=== PATIENT | female | born 1995 | race Caucasian/White ===

== ENCOUNTER 2021-06-20 01:33 | Emergency (ER) | payer BC ==
--- OUTSIDE RECORDS SUMMARY | 2021-06-20 01:38 | XMS REPORT | Continuity of Care Document ---
:1995 Author Organization [facility] t Address [address] [place] [address] Care Team Providers Name Role Phone Tamra Attending Clinician Unavailable Violet Blancas NP Attending Clinician Violet BLANCAS Attending Clinician Unavailable PROVIDERADRIANA Attending Clinician Unavailable Radha Cox Attending Clinician Unavailable Payers Payer Name Policy Type Policy Number Effective Date Expiration Date S ource Problems Condition Condition Condition Status Onset Resolution Last Treating Co mments Source Name Details Category Date Date Treatment Clinician Date Problem No known ASSERTION [facility] (Sarabjit) Allergies, Adverse Reactions, Alerts Allergy Allergy Status Severity Reaction(s) Onset Inactive Treating Comm ents Source Name Type Date Date Clinician NO KNOWN Drug Active [facility] ALLERG Class ity of [facility] Social History Social Habit Start Date Stop Date Quantity Comments Source Exposure to Not sure [facility] SARS-[facility]-2 [facility]igned At [address] [facility]00 00:00:00 [facility] (Sarabjit) Smoking Status Start Date Stop Date Source Unknown if ever smoked [facility] [place] ([facility]abjit[facility] Medications Ordered Filled Start Stop Current Ordering Indication Dosage Frequency Signature Comments Components Source Medication Medication Date Date Medication? Clinician (SIG) Name Name Hydrocodone 2020-05 No 1TAB Every [address] [address] [facility]/Apap 2-19 Hours [facility] 5/325 19:54[facility] ([place] 18 [facility] 5/325) 5 (Sarabjit) MG/325 MG Tab Vital Signs Vital Name Observation Time Observation Value Comments Source Systolic blood 2020-08-15 00:09:00 125 mm[Hg] Univer sity of pressure [facility] Diastolic blood 2020-08-15 00:09:00 87 mm[Hg] Unive rsity [facility] Heart rate 2020-08-15 00:09:00 77 /min [facility] Body temperature 2020-08-15 00:09:00 36.72 [facility] Respiratory rate 2020-08-15 00:09:00 18 /min [facility] Body height 2020-08-15 00:09:00 154.9 cm [facility] Body weight 2020-08-15 00:09:00 72.576 kg [facility] BMI 2020-08-15 00:09:00 30.23 kg/m2 [facility] Oxygen saturation in 2020-08-15 00:09:00 99 /min [facility] blood by [facility] Pulse oximetry Branch Height 2021-04-01 12:21:[address] [facility] (Madhav an) Weight Measured 2021-04-01 12:21:19 [facility]hav an[facility] Body Temperature 2021-04-01 12:21:[address] [facility] (Madhav an) Heart Rate 2021-04-01 12:21:[address] [facility] (Madhav an) Respiratory Rate 2021-04-01 12:21:[address] [facility] (Madhav an) O2 % BldC Oximetry 2021-04-01 12:21:[address] [facility] (Madhav an) BP Systolic 2021-04-01 12:21:[address] [facility] (Madhav an) BP Diastolic 2021-04-01 12:21:[address] [facility] (Madhav an) BMI (Body Mass 2021-04-01 12:21:19 AMBERLY Ribera - Index) [facility] (Madhav michaels) Procedures Procedure Date / Time Performed Performing Clinician [facility] e CT Stone Protocol 2021-05-17 17:08:[address] Tez [address]on [facility] (Sarabjit) ASSIGNMENT OF BENEFITS 2020-08-15 00:55:59 Doctor Unassigned, No [facility] NOTICE OF PRIVACY 2020-08-15 00:03:18 Doctor Unassigned, No [facility] CONSENT/REFUSAL FOR 2020-08-15 00:02:36 Doctor Unassigned, No [facility] DIAGNOSIS AND [facility] TREATMENT CT Stone Protocol 2019-07-13 00:00:00 AMBERLY Jordy Reagan rubio - [facility] (Sarabjit) Encounters Start End Encounter Admission Attending Care Care Encounter Source Date/Time Date/Time Type Type Clinicians Facility Department ID 2021-05-17 2021-05-17 Departed [id number] [place] [id number] [facility] St. 16:47:00 21:22:00 Emergency [id number] Regional [id number] [facility] - -[id number] [facility] [id number] St. [id number] Ctr-EMERGEN [id number] [facility] (Madhav michaels) 2021-05-17 2021-05-17 [id number] 16:47:00 21:22:00 Juan Pablo -[id number] Ronni barber [facility] (Sarabjit) 2020-08-14 2020-08-14 Emergency [facility] [id number] Univers 19:10:00 19:58:00 Cody Faye [id number] jeremiah [facility] [id number] [facility] [id number] [facility] 084 Branch 2020-08-14 2020-08-14 Emergency X [facility] ERT [id number] Univers 19:10:00 19:10:00 CODY daniels [facility] 2019-07-12 2019-07-13 Departed ER PROVIDER, [id number] [facility] [id number] [id number] [facility] St. 23:01:00 03:10:00 Emergency ED [id number] [facility] [address] [facility] - [id number]. [facility] St. 1.2 [facility] (Sarabjit) 2019-07-12 2019-07-13 Emergency ER Brooke [id number] [facility] St. 23:01:00 03:10:00 Sushila -[id number] [facility] (Sarabjit) Results Test Description Test Time Test Comments Results Result Comments Source Culture, Urine 2021-05-19 14:16:00 Test Item Value Reference Range Interpretation Comme nts Culture, Urine (test code = URC) NG48 [id number] 18:03:00 Test Item Value Reference Range Interpretation Comments Urinalysis (test Negative Negative Method of s ensitivity- code = BHCGUT) INDETERMINANT : results should be repea jonah after 48-72 hrs POS ITIVE: results may be detected as early as 1 day after the first missed period A dilute urine specimen may no t contain representativel evels of hCG.If pregnanc y is still suspected, a fi rst morning urinespecimen O R a random blood specimen should be obtainedfrom th e patient 48-72 hours lat er and re-tested. Urinalysis (test 1.020 1.002-1.036 N code = PREGUSG) [id number] 18:00:00 Test Item Value Reference Range Interpretation Comments Urinalysis (test code = UACLR) Yellow Yellow Urinalysis (test code = UACLY) Hazy Clear Urinalysis (test code = SPGR) 1.020 1.005-1.030 N Urinalysis (test code = SIDDHARTHA) 7.5 5.0-9.0 N Urinalysis (test code = UALEU) Negative Negative Urinalysis (test code = UANIT) Negative Negative Urinalysis (test code = Negative mg/dL Neg-Trace PROUADIP) Urinalysis (test code = GLUCU) Negative mg/dL Negative Urinalysis (test code = KETU) Negative mg/dL Negative Urinalysis (test code = 0.2 mg/dL Less than 2 UAUROB) Urinalysis (test code = UABIL) Negative Negative Urinalysis (test code = UABLD) Moderate Negative A Urinalysis (test code = UAWBC) 0-3 HPF 0-3 Urinalysis (test code = 7-10 HPF 0-3 A UASQUAM) Urinalysis (test code = UABAC) 4+ HPF None Seen A Urinalysis (test code = 0-3 LPF 0-3 UAHYAL) Urine Source: Urine Clean [id number] 17:50:00 Test Item Value Reference Range Interpretation Comments Chemistry (test code 137 mmol/L 136-145 N = NA-T) Chemistry (test code 3.9 mmol/L 3.5-5.1 N = K-T) Chemistry (test code 104 mmol/L 98-107 N = CL) Chemistry (test code 23 mmol/L 22-29 N = CO2) Chemistry (test code 14 mmol/L 10-20 N = ANGP) Chemistry (test code 10 mg/dL 7.0-18.7 N = BUN) Chemistry (test code 0.80 mg/dL 0.6-1.1 N = CREATT) Chemistry (test code 87 Referen ce Range for = EGFRMDRD) Estimated GFR: Great er than 90 mL/min/1.73 m2NOTE:The MDRD equation has no t been validated for u se with theelderly (ove r 70 years of age), women, patientswith se rious comorbid condit ion or persons with ex tremes ofbody size, mu scle mass, or nutrit ional status. Chemistry (test code 96 mg/dL 70-105 N = GLU-T) Chemistry (test code 9.9 mg/dL 7.8-10.44 N = CA) Chemistry (test code 0.9 mg/dL 0.2-1.2 N = TBILI-T) Chemistry (test code 7.7 g/dL 6.0-8.3 N = TP) Chemistry (test code 4.5 g/dL 3.5-5.0 N = ALB) Chemistry (test code 3.2 g/dL 2.4-3.5 N = GLOB) Chemistry (test code 1.4 g/dL 1.2-2.2 N = AG) Chemistry (test code 60 U/L 40-110 N = ALP) Chemistry (test code 23 U/L 5-34 N = AST) Chemistry (test code 32 U/L 8-55 N = ALT) Chemistry - [id number] 17:44:00 Test Item Value Reference Range Interpretation Comments Chemistry - Specials Negative NEGATIVE Method of sensitivity- (test code = BHCGST) Indete rminant: results should be repeated after 48-72 hrs Positive: results may be detected as ear ly as 1 day after the first missed menses. [id number] 17:36:00 Test Item Value Reference Range Interpretation Comments Hematology (test code = WBCT) 8.9 thou/uL 4.8-10.8 N Hematology (test code = RBCT) 4.63 mill/uL 4.20-5.40 N Hematology (test code = HGBT) 14.0 g/dL 12.0-16.0 N Hematology (test code = HCTT) 40.0 % 36.0-47.0 N Hematology (test code = MCV) 86.5 fL 78.0-98.0 N Hematology (test code = MCH) 30.3 pg 27.0-31.0 N Hematology (test code = MCHC) 35.0 g/dL 32.0-36.0 N Hematology (test code = RDW) 11.3 % 11.5-14.5 L Hematology (test code = PLTT) 328 thou/uL 130-400 N Hematology (test code = MPV) 7.6 fL 7.4-10.4 N Hematology (test code = %NEUT) 59.3 % 42.0-75.0 N Hematology (test code = %LYMPH) 30.9 % 21.0-51.0 N Hematology (test code = %MONO) 7.5 % 0.0-10.0 N Hematology (test code = %EOS) 1.7 % 0.0-10.0 N Hematology (test code = %BASO) 0.6 % 0.0-1.0 N Hematology (test code = NEUT#) 5.3 thou/uL 1.40-6.50 N Hematology (test code = LYMPH#) 2.8 thou/uL 1.20-3.40 N Hematology (test code = MONO#) 0.7 thou/uL 0.11-0.59 H Hematology (test code = EOS#) 0.2 thou/uL 0.0-0.7 N Hematology (test code = BASO#) 0.1 thou/uL 0.0-0.2 N Urine urobilinogen measurement (units/volume) by test [id number] 17:29:00 Test Item Value Reference Range Interpretation Comments Urine Urobilinogen (test code = 0.2 mg/dL Less than 2 01909-4) [facility])Urine total bilirubin detection by automated test [id number] 17:29:00 Test Item Value Reference Range Interpretation Comments Urine Bilirubin (test code = Negative Negative 74657-8) [facility])Urine hemoglobin detection by automated test [id number] 17:29:00 Test Item Value Reference Range Interpretation Comments Urine Blood (test code = 14328-5) Moderate Negative [facility])Urine leukocytes detection by automated method 2021-05-17 17:29:00 Test Item Value Reference Range Interpretation Comments Urine WBC (test code = 66029-5) 0-3 HPF [facility])Epithelial cells.squamous [#/area] in Urine sediment by Automated [id number] 17:29:00 Test Item Value Reference Range Interpretation Comments Urine Squamous Epithelial Cells 7-10 HPF (test code = 39747-4) [facility]Urine bacteria detection by automated method 2021-05-17 17:29:00 Test Item Value Reference Range Interpretation Comments Urine Bacteria (test code = 37957-6) 4+ HPF None Seen [facility])HCG ur [id number] 17:29:00 Test Item Value Reference Range Interpretation Comments Urine Test (test code = Negative Negative 6-3) [facility])Specific gravity of Urine by Refractometry [id number] 17:29:00 Test Item Value Reference Range Interpretation Comments Urine Specific [place] (test code = 1.020 1.002-1.036 46251-1) [facility])Urine [id number] 17:29:00 Test Item Value Reference Range Interpretation Comments Urine Color (test code = 5778-6) Yellow Yellow [facility])Urine [id number] 17:29:00 Test Item Value Reference Range Interpretation Comments Urine Clarity (test code = 72864-0) Hazy Clear [facility])Urine pH measurement by automated test strip 2021-05-17 17:29:00 Test Item Value Reference Range Interpretation Comments Urine pH (test code = 66545-4) 7.5 5.0-9.0 [facility])Urine leukocyte esterase detection by automated test [id number] 17:29:00 Test Item Value Reference Range Interpretation Comments Urine Leukocyte Esterase (test code Negative Negative = 95541-6) [facility])Nitrite [Presence] in Urine by Test strip 2021-05-17 17:29:00 Test Item Value Reference Range Interpretation Comments Urine Nitrite (test code = 5802-4) Negative Negative [facility])Urine protein measurement by automated test strip (mass/volume)2021-05-17 17:29:00 Test Item Value Reference Range Interpretation Comments Urine Protein (test code = Negative mg/dL Neg-Trace 66318-8) [facility])Glucose [Moles/volume] in Urine by Test strip 2021-05-17 17:29:00 Test Item Value Reference Range Interpretation Comments Urine Glucose (UA) (test code Negative mg/dL Negative = 29211-5) [facility]Urine ketones measurement by automated test strip (mass/volume)2021-05-17 17:29:00 Test Item Value Reference Range Interpretation Comments Urine Ketones (test code = Negative mg/dL Negative 11420-1) [facility])Serum human chorionic gonadotropin detection for [id number] 17:12:00 Test Item Value Reference Range Interpretation Comments Serum Test, Qualitative Negative NEGATIVE (test code = 2118-8) [facility])Leukocytes [#/volume] in Blood by Automated [id number] 17:12:00 Test Item Value Reference Range Interpretation Comments White Blood Count (test code = 8.9 thou/uL 4.8-10.8 6690-2) [facility])Blood erythrocytes automated count (number/volume)2021-05-17 17:12:00 Test Item Value Reference Range Interpretation Comments Red Blood Count (test code = 4.63 mill/uL 4.20-5.40 789-8) [facility])Blood hemoglobin measurement (mass/volume) 2021-05-17 17:12:00 Test Item Value Reference Range Interpretation Comments Hemoglobin (test code = 718-7) 14.0 g/dL 12.0-16.0 [facility])Automated erythrocyte mean corpuscular volume 2021-05-17 17:12:00 Test Item Value Reference Range Interpretation Comments Mean Corpuscular Volume (test code = 86.5 fL 78.0-98.0 787-2) [facility])Automated erythrocyte mean corpuscular hemoglobin (mass per erythrocyte)2021-05-17 17:12:00 Test Item Value Reference Range Interpretation Comments Mean Corpuscular Hemoglobin (test 30.3 pg 27.0-31.0 code = 785-6) [facility])Automated erythrocyte mean corpuscular hemoglobin concentration measurement (mass/[id number] 17:12:00 Test Item Value Reference Range Interpretation Comments Mean Corpuscular Hemoglobin Concent 35.0 g/dL 32.0-36.0 (test code = 786-4) [facility])Automated erythrocyte distribution width ratio 2021-05-17 17:12:00 Test Item Value Reference Range Interpretation Comments Red Cell Distribution Width (test code 11.3 % 11.5-14.5 = 788-0) [facility])Automated blood platelet count (count/volume) 2021-05-17 17:12:00 Test Item Value Reference Range Interpretation Comments Platelet Count (test code = 328 thou/uL 130-400 777-3) [facility])Automated blood platelet mean [id number] 17:12:00 Test Item Value Reference Range Interpretation Comments Mean Platelet Volume (test code = 7.6 fL 7.4-10.4 83558-8) [facility])Automated blood neutrophils/100 leukocytes 2021-05-17 17:12:00 Test Item Value Reference Range Interpretation Comments Neutrophils % (test code = 770-8) 59.3 % 42.0-75.0 [facility])Lymphocytes/100 leukocytes in Blood by Automated [id number] 17:12:00 Test Item Value Reference Range Interpretation Comments Lymphocytes % (test code = 736-9) 30.9 % 21.0-51.0 [facility])Automated blood monocytes/100 leukocytes 2021-05-17 17:12:00 Test Item Value Reference Range Interpretation Comments Monocytes % (test code = 5905-5) 7.5 % 0.0-10.0 [facility])Automated blood eosinophils/100 leukocytes 2021-05-17 17:12:00 Test Item Value Reference Range Interpretation Comments Eosinophils % (test code = 713-8) 1.7 % 0.0-10.0 [facility])Automated blood basophils/100 leukocytes 2021-05-17 17:12:00 Test Item Value Reference Range Interpretation Comments Basophils % (test code = 706-2) 0.6 % 0.0-1.0 [facility])Blood neutrophils automated count (number/volume)2021-05-17 17:12:00 Test Item Value Reference Range Interpretation Comments Neutrophils # (test code = 751-8) 5.3 thou/uL 1.40-6.50 [facility])Lymphocytes [#/volume] in Blood by Automated [id number] 17:12:00 Test Item Value Reference Range Interpretation Comments Lymphocytes # (test code = 731-0) 2.8 thou/uL 1.20-3.40 [facility])Blood monocytes automated count (number/volume)2021-05-17 17:12:00 Test Item Value Reference Range Interpretation Comments Monocytes # (test code = 742-7) 0.7 thou/uL 0.11-0.59 [facility])Blood eosinophils automated count (count/volume)2021-05-17 17:12:00 Test Item Value Reference Range Interpretation Comments Eosinophils # (test code = 711-2) 0.2 thou/uL 0.0-0.7 [facility])Automated blood basophil count (count/volume) 2021-05-17 17:12:00 Test Item Value Reference Range Interpretation Comments Basophils # (test code = 704-7) 0.1 thou/uL 0.0-0.2 [facility]Serum or plasma sodium measurement (moles/volume)2021-05-17 17:08:00 Test Item Value Reference Range Interpretation Comments Sodium Level (test code = 2951-2) 137 mmol/L 136-145 [facility])Serum or plasma potassium measurement (moles/volume)2021-05-17 17:08:00 Test Item Value Reference Range Interpretation Comments Potassium Level (test code = 3.9 mmol/L 3.5-5.1 2823-3) [facility]Serum or plasma chloride measurement (moles/volume)2021-05-17 17:08:00 Test Item Value Reference Range Interpretation Comments Chloride Level (test code = 104 mmol/L 98-107 5-0) [facility])Serum or plasma carbon dioxide, total measurement (moles/volume)2021-05-17 17:08:00 Test Item Value Reference Range Interpretation Comments Carbon Dioxide Level (test code = 23 mmol/L -2028-01) [facility])Serum or plasma anion [id number] 17:08:00 Test Item Value Reference Range Interpretation Comments Anion Gap (test code = 93735-2) 14 mmol/L 10-20 [facility])Serum or plasma urea nitrogen measurement (mass/volume)2021-05-17 17:08:00 Test Item Value Reference Range Interpretation Comments Blood Urea Nitrogen (test code = 10 mg/dL 7.0-18.7 3094-0) [facility])Serum or plasma creatinine measurement (mass/volume)2021-05-17 17:08:00 Test Item Value Reference Range Interpretation Comments Creatinine (test code = 2160-0) 0.80 mg/dL 0.6-1.1 [facility])Glucose [Mass/volume] in Serum or Plasma 2021-05-17 17:08:00 Test Item Value Reference Range Interpretation Comments Glucose Level (test code = 2345-7) 96 mg/dL 70-105 [facility])Serum or plasma calcium measurement (mass/volume)2021-05-17 17:08:00 Test Item Value Reference Range Interpretation Comments Calcium Level (test code = 58531-2) 9.9 mg/dL 7.8-10.44 [facility])Serum or plasma total bilirubin measurement (mass/volume)2021-05-17 17:08:00 Test Item Value Reference Range Interpretation Comments Total Bilirubin (test code = 0.9 mg/dL 0.2-1.2 1974-2) [facility]Serum or plasma protein measurement (mass/volume)2021-05-17 17:08:00 Test Item Value Reference Range Interpretation Comments Serum Total Protein (test code = 7.7 g/dL 6.0-8.3 2885-2) [facility])Serum or plasma albumin measurement by bromocresol green (BCG) dye binding method ([id number] 17:08:00 Test Item Value Reference Range Interpretation Comments Albumin (test code = 70076-7) 4.5 g/dL 3.5-5.0 [facility])Globulin [Mass/volume] in Serum by calculation 2021-05-17 17:08:00 Test Item Value Reference Range Interpretation Comments Globulin (test code = 92887-0) 3.2 g/dL 2.4-3.5 [facility])Albumin/Globulin [Mass Ratio] in Serum or [id number] 17:08:00 Test Item Value Reference Range Interpretation Comments Albumin/Globulin Ratio (test code = 1.4 g/dL 1.2-2.2 1759-0) [facility])Alkaline phosphatase [Enzymatic activity/volume] in Serum or [id number] 17:08:00 Test Item Value Reference Range Interpretation Comments Alkaline Phosphatase (test code = 60 U/L 40-110 6768-6) [facility])Serum or plasma aspartate aminotransferase measurement (enzymatic activity/volume)2021-05-17 17:08:00 Test Item Value Reference Range Interpretation Comments Aspartate Amino Transf (AST/SGOT) 23 U/L 5-34 (test code = 1920-8) [facility])Serum or plasma alanine aminotransferase measurement without P-5'-P (enzymatic [id number] 17:08:00 Test Item Value Reference Range Interpretation Comments Alanine Aminotransferase (ALT/SGPT) 32 U/L 8-55 (test code = 1744-2) [facility])[id number] 01:22:00 Test Item Value Reference Range Interpretation Comments Urinalysis (test Yellow Yellow code = UACLR) Urinalysis (test Cloudy Clear code = UACLY) Urinalysis (test 1.025 1.005-1.030 N code = SPGR) Urinalysis (test 6.5 5.0-9.0 N code = SIDDHARTHA) Urinalysis (test Negative Negative code = UALEU) Urinalysis (test Negative Negative code = UANIT) Urinalysis (test 30 mg/dL Neg-Trace A code = PROUADIP) Urinalysis (test Negative mg/dL Negative code = GLUCU) Urinalysis (test Trace mg/dL Negative A code = KETU) Urinalysis (test 0.2 mg/dL Less than 2 code = UAUROB) Urinalysis (test Small Negative A code = UABIL) CAUTION *Urine Bilirubin has a high incidence of fa lse positiveresults due to urine color interference.In terpret results in conj unction with other clinicalfinding s. Urinalysis (test Large Negative A code = UABLD) Urinalysis (test 4-6 HPF 0-3 A code = UARBC) Urinalysis (test 11-20 HPF 0-3 A code = UAWBC) Urinalysis (test 0-3 HPF 0-3 code = UASQUAM) Urinalysis (test None Seen HPF None Seen code = UATRANS) Urinalysis (test None Seen HPF None Seen code = UARENAL) Urinalysis (test 1+ HPF None Seen A code = UABAC) Urine Source: Urine [id number] 01:20:00 Test Item Value Reference Range Interpretation Comments Urinalysis (test Negative Negative Method of s ensitivity- code = BHCGUT) INDETERMINANT : results should be repea jonah after 48-72 hrs POS ITIVE: results may be detected as early as 1 day after the first missed period A dilute urine specimen may no t contain representativel evels of hCG.If pregnanc y is still suspected, a fi rst morning urinespecimen O R a random blood specimen should be obtainedfrom e patient 48-72 hours lat er and re-tested. Urinalysis (test 1.025 1.002-1.036 N code = PREGUSG) Laboratory Ebbqfmf8200-56-40 00:57:00 Test Item Value Reference Range Interpretation Comments 5803-2 (test code = 5803-2) 6.5 5.0-9.0 [facility] ([place])Laboratory Ikbhmgh3475-37-64 00:57:00 Test Item Value Reference Range Interpretation Comments 09211-2 (test code = 43561-4) 0.2 mg/dL [facility] ([place]Laboratory Ehzwndm9937-62-15 00:57:00 Test Item Value Reference Range Interpretation Comments 5811-5 (test code = 5811-5) 1.025 1.005-1.030 [facility] ([place]Laboratory Qnuzxip2580-68-75 00:57:00 Test Item Value Reference Range Interpretation Comments 5804-0 (test code = 5804-0) 30 mg/dL A [facility] ([place]Laboratory Cvnsxnq9036-23-69 00:57:00Urine WBC [facility] ([place]Laboratory Ibjglfp4459-67-83 00:57:00Urine Transitional Epithelial CellsSouth [facility] ([place] Nmkzfra1644-10-66 00:57:00Urine Squamous Epithelial CellsSouth [facility] ([place] Teqrayh5178-62-80 00:57:00Urine Renal Epithelial Cells [facility] ([place]Laboratory Oiribcp1377-21-71 00:57:00Urine RBC [facility] ([place]Laboratory Spaltqa0886-97-34 00:57:00[facility] Xwryzxi5899-94-57 00:57:00 [facility]rine [facility]it[facility] Nadzwcw1882-25-57 00:57:00Urine Leukocyte EsteraseSouth [facility] Ensdfcl0517-81-37 00:57:00Urine [facility]onesCH[facility] Wroxzyn3742-94-71 00:57:00Urine Glucose (UA)[facility]Laboratory Sqhgynh2967-66-30 00:57:00Urine ColorCH[facility] Fznvuvz5437-11-10 00:57:00Urine Clarity[facility] Tuykdfs1720-41-26 00:57:00Urine BloodSouth [facility] ([place] Ahhvkio1557-72-87 00:57:00Urine BilirubinCH[facility] Qqvvpcj7369-92-01 00:57:00 Urine Test[facility] ([place])Xxbzqbjha2373-85-30 00:33:00 Test Item Value Reference Range Interpretation Comments Chemistry (test code 140 mmol/L 136-145 N = NA-T) Chemistry (test code 4.1 mmol/L 3.5-5.1 N = K-T) Chemistry (test code 106 mmol/L 98-107 N = CL) Chemistry (test code 23 mmol/L 22-29 N = CO2) Chemistry (test code 15 mmol/L 10-20 N = ANGP) Chemistry (test code 11 mg/dL 7.0-18.7 N = BUN) Chemistry (test code 1.00 mg/dL 0.6-1.1 N = CREATT) Chemistry (test code 69 Referen ce Range for = EGFRMDRD) Estimated GFR: Great er than 90 mL/min/1.73 m2NOTE:The MDRD equation has no t been validated for u se with theelderly (ove r 70 years of age), women, patientswith se rious comorbid condit ion or persons with ex tremes ofbody size, mu scle mass, or nutrit ional status. Chemistry (test code 99 mg/dL 70-105 N = GLU-T) Chemistry (test code 9.8 mg/dL 7.8-10.44 N = CA) Chemistry (test code 1.7 mg/dL 0.2-1.2 H = TBILI-T) Chemistry (test code 7.9 g/dL 6.0-8.3 N = TP) Chemistry (test code 4.7 g/dL 3.5-5.0 N = ALB) Chemistry (test code 3.2 g/dL 2.4-3.5 N = GLOB) Chemistry (test code 1.5 g/dL 1.2-2.2 N = AG) Chemistry (test code 52 U/L 40-110 N = ALP) Chemistry (test code 17 U/L 5-34 N = AST) Chemistry (test code 12 U/L 8-55 N = ALT) Pzjerliurt6830-67-06 00:23:00 Test Item Value Reference Range Interpretation Comments Hematology (test code = WBCT) 9.4 thou/uL 4.8-10.8 N Hematology (test code = RBCT) 4.67 mill/uL 4.20-5.40 N Hematology (test code = HGBT) 14.6 g/dL 12.0-16.0 N Hematology (test code = HCTT) 41.2 % 36.0-47.0 N Hematology (test code = MCV) 88.2 fL 78.0-98.0 N Hematology (test code = MCH) 31.4 pg 27.0-31.0 H Hematology (test code = MCHC) 35.5 g/dL 32.0-36.0 N Hematology (test code = RDW) 11.2 % 11.5-14.5 L Hematology (test code = PLTT) 314 thou/uL 130-400 N Hematology (test code = MPV) 7.8 fL 7.4-10.4 N Hematology (test code = %NEUT) 57.6 % 42.0-75.0 N Hematology (test code = %LYMPH) 33.3 % 21.0-51.0 N Hematology (test code = %MONO) 6.6 % 0.0-10.0 N Hematology (test code = %EOS) 1.8 % 0.0-10.0 N Hematology (test code = %BASO) 0.6 % 0.0-1.0 N Hematology (test code = NEUT#) 5.4 thou/uL 1.40-6.50 N Hematology (test code = LYMPH#) 3.1 thou/uL 1.20-3.40 N Hematology (test code = MONO#) 0.6 thou/uL 0.11-0.59 H Hematology (test code = EOS#) 0.2 thou/uL 0.0-0.7 N Hematology (test code = BASO#) 0.1 thou/uL 0.0-0.2 N Laboratory Xgqbhhx9044-68-18 00:01:00 Test Item Value Reference Range Interpretation Comments 2823-3 (test code = 2823-3) 4.1 mmol/L 3.5-5.1 [facility])Laboratory Honkkxn4106-58-18 00:01:00 Test Item Value Reference Range Interpretation Comments 2345-7 (test code = 2345-7) 99 mg/dL 70-105 [facility])Laboratory Eutheyj3831-58-73 00:01:00 Test Item Value Reference Range Interpretation Comments 49403-2 (test code = 45246-7) 3.2 g/dL 2.4-3.5 [facility])Laboratory Amccmkj4121-09-00 00:01:00 Test Item Value Reference Range Interpretation Comments 07025-3 (test code = 04144-6) 69 [facility])Laboratory Wdctmhz0571-59-76 00:01:00 Test Item Value Reference Range Interpretation Comments 2160-0 (test code = 2160-0) 1.00 mg/dL 0.6-1.1 [facility])Laboratory Dqeaabu9006-44-02 00:01:00 Test Item Value Reference Range Interpretation Comments 2075-0 (test code = 2075-0) 106 mmol/L 98-107 [facility])Laboratory Suvnjtj6470-86-33 00:01:00 Test Item Value Reference Range Interpretation Comments 8-9 (test code = 8-9) 23 mmol/L 22-29 [facility])Laboratory Xslwvmv3897-69-58 00:01:00 Test Item Value Reference Range Interpretation Comments 14519-0 (test code = 54377-0) 9.8 mg/dL 7.8-10.44 [facility])Laboratory Dgwyzny7226-25-54 00:01:00 Test Item Value Reference Range Interpretation Comments 3094-0 (test code = 3094-0) 11 mg/dL 7.0-18.7 [facility])Laboratory Rmjsxlt6577-80-95 00:01:00 Test Item Value Reference Range Interpretation Comments 1920-8 (test code = 1920-8) 17 U/L 5-34 [facility])Laboratory Yinqhfc3536-48-87 00:01:00 Test Item Value Reference Range Interpretation Comments 73178-2 (test code = 37959-0) 15 mmol/L 10-20 [facility])Laboratory Lfrknjx8720-95-14 00:01:00 Test Item Value Reference Range Interpretation Comments 6768-6 (test code = 6768-6) 52 U/L 40-110 [facility])Laboratory Doehvsd2395-31-44 00:01:00 Test Item Value Reference Range Interpretation Comments 1759-0 (test code = 1759-0) 1.5 g/dL 1.2-2.2 [facility])Laboratory Tkngvnx6367-46-85 00:01:00 Test Item Value Reference Range Interpretation Comments 30356-5 (test code = 63045-9) 4.7 g/dL 3.5-5.0 [facility])Laboratory Fkjsozb6396-92-97 00:01:00 Test Item Value Reference Range Interpretation Comments 1744-2 (test code = 1744-2) 12 U/L 8-55 [facility])Laboratory Rhlbhqs2932-51-50 00:01:00 Test Item Value Reference Range Interpretation Comments 6690-2 (test code = 6690-2) 9.4 thou/uL 4.8-10.8 [facility])Laboratory Lbkplae7589-68-23 00:01:00 Test Item Value Reference Range Interpretation Comments 788-0 (test code = 788-0) 11.2 % 11.5-14.5 L [facility])Laboratory Umrbxkx7362-05-76 00:01:00 Test Item Value Reference Range Interpretation Comments 789-8 (test code = 789-8) 4.67 mill/uL 4.20-5.40 [facility])Laboratory Wwdcxls0469-94-28 00:01:00 Test Item Value Reference Range Interpretation Comments 777-3 (test code = 777-3) 314 thou/uL 130-400 [facility])Laboratory Xfyyosf9462-03-28 00:01:00 Test Item Value Reference Range Interpretation Comments 770-8 (test code = 770-8) 57.6 % 42.0-75.0 [facility])Laboratory Tdwhoub1145-19-07 00:01:00 Test Item Value Reference Range Interpretation Comments 751-8 (test code = 751-8) 5.4 thou/uL 1.40-6.50 [facility])Laboratory Qwfvvjh5523-83-73 00:01:00 Test Item Value Reference Range Interpretation Comments 5905-5 (test code = 5905-5) 6.6 % 0.0-10.0 [facility])Laboratory Yjibqfm7036-12-75 00:01:00 Test Item Value Reference Range Interpretation Comments 742-7 (test code = 742-7) 0.6 thou/uL 0.11-0.59 H [facility])Laboratory Lbilckl9831-10-92 00:01:00 Test Item Value Reference Range Interpretation Comments 83769-8 (test code = 41645-4) 7.8 fL 7.4-10.4 [facility])Laboratory Ldvdsja7861-14-69 00:01:00 Test Item Value Reference Range Interpretation Comments 787-2 (test code = 787-2) 88.2 fL 78.0-98.0 [facility])Laboratory Oneukyy1913-24-65 00:01:00 Test Item Value Reference Range Interpretation Comments 786-4 (test code = 786-4) 35.5 g/dL 32.0-36.0 [facility])Laboratory Ftncrmb5313-79-71 00:01:00 Test Item Value Reference Range Interpretation Comments 785-6 (test code = 785-6) 31.4 pg 27.0-31.0 H [facility])Laboratory Wtklpwb0214-28-11 00:01:00 Test Item Value Reference Range Interpretation Comments 736-9 (test code = 736-9) 33.3 % 21.0-51.0 [facility])Laboratory Iemolhs0145-36-21 00:01:00 Test Item Value Reference Range Interpretation Comments 731-0 (test code = 731-0) 3.1 thou/uL 1.20-3.40 [facility]Laboratory Pdapzuf3356-30-34 00:01:00 Test Item Value Reference Range Interpretation Comments 718-7 (test code = 718-7) 14.6 g/dL 12.0-16.0 [facility]Laboratory Bwftoad2690-44-53 00:01:00 Test Item Value Reference Range Interpretation Comments 713-8 (test code = 713-8) 1.8 % 0.0-10.0 [facility]Laboratory Xqpiwmw0166-53-98 00:01:00 Test Item Value Reference Range Interpretation Comments 711-2 (test code = 711-2) 0.2 thou/uL 0.0-0.7 [facility])Laboratory Yypbmdj5384-55-21 00:01:00 Test Item Value Reference Range Interpretation Comments 706-2 (test code = 706-2) 0.6 % 0.0-1.0 [facility]Laboratory Uhoaelz5196-68-83 00:01:00 Test Item Value Reference Range Interpretation Comments 704-7 (test code = 704-7) 0.1 thou/uL 0.0-0.2 [facility])Laboratory Dlfgbfy4649-13-41 00:01:00 Test Item Value Reference Range Interpretation Comments 1975-2 (test code = 1975-2) 1.7 mg/dL 0.2-1.2 [facility] Vhbitwp7991-61-65 00:01:00 Test Item Value Reference Range Interpretation Comments 2951-2 (test code = 2951-2) 140 mmol/L 136-145 [facility] ([place]Laboratory Rvbczzx1123-85-75 00:01:00 Test Item Value Reference Range Interpretation Comments 2885-2 (test code = 2885-2) 7.9 g/dL 6.0-8.3 [facility] ([place])CT Stone Protocol [facility] BRYANName: SCAR NINO Yas : 1995 [facility]: SCAR NINO [address] Phys: [place] [address] : 1995 Age: 25 SEX:F [phone] Exam Date: 05/17/21 Status: REG ER Acct: [id number] Loc: ERS Pt Unit #: [id number] Report #: [id number] CC: ED TEMP PROVIDER Melanie Cuevas CAT SCAN REPORT Order # Category/Exam [id number] CT/CT Stone Protocol ([id number]): . Results CT Stone Protocol History: Right flank pain Comparison: [address] June 2019 Findings: Lung bases are clear. No pericardial effusion. Mild hepatic steatosis. Mild right hydroureteronephrosis to the level of the distal ureter for certain. Minimally obstructing 2 mm stone. Numerous small 2 to 3 mm calculi throughout both renal collecting systems. No left-sided hydroureteronephrosis Left adnexal hypodensity, normal for age. The appendix is visualized and normal. No bowel obstruction. No free intraperitoneal gas or fluid.Thoracolumbar spine is intact. Impression: Partially obstructing 2 mm stone right distal ureterat the ureterovesicular junction. Reported By: SHANEKA GAINES Electronically Signed Date/Time: 05/17/211817 Technologist: MARLENE Dictated Date/Time: 05/17/211815 Transcribed Date/Time:CT Stone ProtocolSt [facility] Pt Name: SCAR NINO [employer] Phys: [place] [address] : 1995 Age: 23 SEX:F [phone] Exam Date: 07/13/19 Status: DEP ER Acct: [id number] Loc: ERS Pt Unit #: [id number] Report #: [id number] CC: Sushila Cox MD CAT SCAN REPORT Order # Category/Exam [id number] CT/CT Stone Protocol ([id number]): . Results CT OF THE AD AND PELVIS WITHOUT IV CONTRAST: INDICATION: History of right-sided flank pain. COMPARISON: None. FINDINGS: There is mild right hydronephrosis and edematous changes of the right kidney. There is mild right hydroureter. There is a 1.7 cm calculus at the right UVJ. There is a 1.5 mm calculus involving the inferior pole of the right kidney. The left kidney is normal-appearing. Lung bases are clear. The unopacified liver, pancreas, spleen, and adrenal glands are normal-appearing. There is a normal appendix in the right lower quadrant. Bladder is partially decompressed. Reproductive structures and unopacified large and small bowel reveal no definite acute abnormality. No acute osseous abnormality is evident. IMPRESSION: 1. A 1.7 mm right ureterovesical junction calculus with mild right hydronephrosis. 2. Right nephrolithiasis. POS: BH Reported By: Janes Lemus MD Electronically Signed Date/Time: 07/13/19 0911 Technologist: BETH Dictated Date/Time: 07/13/19 0225 Transcribed Date/Time: 07/13/19 0877
[2021-06-20] MEDS ORDERED: IBUPROFEN 400 MG TAB ONE (04:07)
--- NOTE | 2021-06-20 05:31 | EDPHYS ---
Physician Documentation [facility] Name: Kira Tam Age: 25 yrs Sex: Female : 1995 Arrival Date: 06/20/2021 Time: 01:54 Bed 19 Private MD: ED Physician Isaias Keyes HPI: 06/20 04:01 This 25 yrs old Female presents to ER via Ambulatory with complaints of Ankle Injury. mh7 04:01 The patient presents with an injury. The complaints affect the right ankle. mh7 04:01 Onset: The symptoms/episode began/occurred last night. Context: The problem was mh7 sustained on a street or driveway, resulted from a mis-step by the patient, on a curb, Twisting The patient can fully bear weight on the affected extremity. the patient is able to ambulate, with mild difficulty. Associated signs and symptoms: Pertinent negatives: calf tenderness, fever, nausea, numbness, rash, swelling, tingling, vomiting, warmth, weakness. Modifying factors: The symptoms are alleviated by nothing, the symptoms are aggravated by weight bearing. Severity of symptoms: At their worst the symptoms were mild, last night, in the emergency department the symptoms are unchanged. Historical: - Allergies: 02:07 Latex, Natural Rubber; as6 - Home Meds: 02:07 propranolol 80 mg Oral Cs24 1 cap once daily [Active]; omeprazole 20 mg Oral cpDR 1 cap as6 once daily [Active]; olmesartan 20 mg oral tab 1 tab once daily [Active]; rosuvastatin 10 mg oral cpSP 1 cap once daily [Active]; escitalopram oxalate 20 mg oral tab 1 tab once daily [Active]; - PMHx: 02:07 Hypertensive disorder; Hypercholesterolemia; Anxiety; as6 - Immunization history:: Client reports receiving the 2nd dose of the Covid vaccine, moderna . - Social history:: Smoking status: Reported history of juuling and/or vaping. ROS: 04:01 Constitutional: Negative for fever, chills, and weight loss, Eyes: Negative for injury, mh7 pain, redness, and discharge, ENT: Negative for injury, pain, and discharge, Neck: Negative for injury, pain, and swelling, Cardiovascular: Negative for chest pain, palpitations, and edema, Respiratory: Negative for shortness of breath, cough, wheezing, and pleuritic chest pain, Abdomen/GI: Negative for abdominal pain, nausea, vomiting, diarrhea, and constipation, Back: Negative for injury and pain, : Negative for injury, bleeding, discharge, and swelling, Skin: Negative for injury, rash, and discoloration, Neuro: Negative for headache, weakness, numbness, tingling, and seizure, Psych: Negative for depression, anxiety, suicide ideation, homicidal ideation, and hallucinations, Allergy/Immunology: Negative for hives, rash, and allergies, Endocrine: Negative for neck swelling, polydipsia, polyuria, polyphagia, and marked weight changes, Hematologic/Lymphatic: Negative for swollen nodes, abnormal bleeding, and unusual bruising. Exam: 04:01 Constitutional: This is a well developed, well nourished patient who is awake, alert, mh7 and in no acute distress. Head/Face: Normocephalic, atraumatic. Skin: Warm, dry with normal turgor. Normal color with no rashes, no lesions, and no evidence of cellulitis. 04:01 Neuro: Awake and alert, GCS 15, oriented to person, place, time, and situation. mh7 Cranial nerves II-XII grossly intact. Motor strength 5/5 in all extremities. Sensory grossly intact. Cerebellar exam normal. Normal gait. Psych: Awake, alert, with orientation to person, place and time. Behavior, mood, and affect are within normal limits. 04:01 Musculoskeletal/extremity: Extremities: noted in the right ankle and dorsal right mh7 lateral foot: ecchymosis, swelling, tenderness, ROM: limited active range of motion due to pain, in the right ankle, limited passive range of motion due to pain, in the right ankle, Circulation is intact in all extremities. Sensation intact. Compartment Syndrome exam of affected extremity: is normal. no numbness, no tingling, no sensation deficit, no palor, no weak pulses, Joints: the right ankle displays painful range of motion, tenderness, Weight bearing: able to fully bear weight, Mild limp, Tendon exam: specific tendon testing normal through active and passive range of motion Vital Signs: 02:05 BP 131 / 86; Pulse 94; Resp 18 S; Temp 97.1(TE); Pulse Ox 98% on R/A; Weight 87.54 kg as6 (R); Height 5 ft. 1 in. (154.94 cm) (R); Pain 4/10; 05:14 BP 103 / 63; Pulse 81; Resp 15; Pulse Ox 99% on R/A; ll3 02:05 Body Mass Index 36.47 (87.54 kg, 154.94 cm) as6 MDM: 05:28 Differential diagnosis: fracture, sprain, arthritis. Data reviewed: vital signs, nurses [facility] notes, radiologic studies, plain films. Data interpreted: Pulse oximetry: on room air is 99 %. Interpretation: normal. Counseling: I had a detailed discussion with the patient and/or guardian regarding: the historical points, exam findings, and any diagnostic results supporting the discharge/admit diagnosis, lab results, radiology results, the need for outpatient follow up, to return to the emergency department if symptoms worsen or persist or if there are any questions or concerns that arise at home. Response to treatment: the patient's symptoms have markedly improved after treatment. 05:31 Patient medically screened. [facility] 06/20 03:59 Order name: Ankle Right 3 View XRAY [facility] 06/20 04:07 Order name: Foot Right 3 View XRAY [facility] 06/20 05:26 Order name: Walking boot; Complete Time: 06:05 [facility] Administered Medications: 04:12 Drug: Motrin (ibuprofen) 800 mg Route: PO; ll3 05:16 Follow up: Response: No adverse reaction ll3 Disposition Summary: 06/20/21 05:31 Discharge Ordered Location: Home [facility] Problem: new [facility] Symptoms: have improved [facility] Condition: Stable [facility] Diagnosis - Sprain of unspecified ligament of right ankle [facility] Followup: [facility] - With: Private Physician - When: 1 - 2 days - Reason: Worsening of condition, Recheck today's complaints, Continuance of care, Re-evaluation by your physician Followup: [facility] - With: Vik Bynum MD - When: 2 - 3 days - Reason: Worsening of condition, Recheck today's complaints, Continuance of care Discharge Instructions: - Discharge Summary Sheet [facility] - Ankle Sprain, Tnan-sb-Birb [facility] Forms: - Medication Reconciliation Form [facility] - Thank You Letter [facility] - Antibiotic Education [facility] - Prescription Opioid Use [facility] Prescriptions: - Ibuprofen 800 mg Oral Tablet - take 1 tablet by ORAL route every 8 hours As needed take with food; 15 tablet; mh7 Refills: 0, Product Selection Permitted Signatures: Dispatcher [employer] Isaias Weldon MD MD mh7 Tex Villalobos RN RN as6 Jorge Lawrence RN RN ll3 Corrections: (The following items were deleted from the chart) 04:08 04:01 Musculoskeletal/extremity: Extremities: noted in the right ankle: swelling, mh7 tenderness, ROM: limited active range of motion due to pain, in the right ankle, limited passive range of motion due to pain, in the right ankle, mh7
--- NOTE | 2021-06-20 05:31 | ER ---
Nurse's Notes [facility] Name: Kira Tam Age: 25 yrs Sex: Female : 1995 Arrival Date: 06/20/2021 Time: 01:54 Bed 19 Private MD: Diagnosis: Sprain of unspecified ligament of right ankle Presentation: 06/20 02:05 Chief complaint: Patient states: pt rolled right ankle while she was cleaning her as6 truck. Coronavirus screen: At this time, the client does not indicate any symptoms associated with coronavirus-19. Ebola Screen: No symptoms or risks identified at this time. Initial Sepsis Screen: Does the patient meet any 2 criteria? No. Patient's initial sepsis screen is negative. Does the patient have a suspected source of infection? No. Patient's initial sepsis screen is negative. Risk Assessment: Do you want to hurt yourself or someone else? Patient reports no desire to harm self or others. Onset of symptoms was June 19, 2021. 02:05 Method Of Arrival: Ambulatory as6 02:05 Acuity: JOSE 4 as6 Historical: - Allergies: 02:07 Latex, Natural Rubber; as6 - Home Meds: 02:07 propranolol 80 mg Oral Cs24 1 cap once daily [Active]; omeprazole 20 mg Oral cpDR 1 cap as6 once daily [Active]; olmesartan 20 mg oral tab 1 tab once daily [Active]; rosuvastatin 10 mg oral cpSP 1 cap once daily [Active]; escitalopram oxalate 20 mg oral tab 1 tab once daily [Active]; - PMHx: 02:07 Hypertensive disorder; Hypercholesterolemia; Anxiety; as6 - Immunization history:: Client reports receiving the 2nd dose of the Covid vaccine, moderna . - Social history:: Smoking status: Reported history of juuling and/or vaping. Screenin:51 Abuse screen: Denies threats or abuse. Nutritional screening: No deficits noted. ll3 Tuberculosis screening: No symptoms or risk factors identified. 06:05 Fall Risk None identified. ll3 Assessment: 03:48 General: Appears in no apparent distress. uncomfortable, Behavior is calm, cooperative. ll3 Pain: Complains of pain in right ankle and right Achilles. Neuro: Level of Consciousness is awake, alert, obeys commands, Oriented to person, place, time, situation. Cardiovascular: Patient's skin is warm and dry. Respiratory: Respiratory effort is even, unlabored, Respiratory pattern is regular, symmetrical. Derm: Skin is pink, warm \T\ dry. Bruising that is on right ankle. Musculoskeletal: Range of motion: limited in right ankle Reports pain in right ankle. Injury Description: Rolled ankle. 05:14 Reassessment: Patient appears in no apparent distress at this time. No changes from ll3 previously documented assessment. Patient and/or family updated on plan of care and expected duration. Pain level reassessed. Patient is alert, oriented x 3, equal unlabored respirations, skin warm/dry/pink. Vital Signs: 02:05 BP 131 / 86; Pulse 94; Resp 18 S; Temp 97.1(TE); Pulse Ox 98% on R/A; Weight 87.54 kg as6 (R); Height 5 ft. 1 in. (154.94 cm) (R); Pain 4/10; 05:14 BP 103 / 63; Pulse 81; Resp 15; Pulse Ox 99% on R/A; ll3 02:05 Body Mass Index 36.47 (87.54 kg, 154.94 cm) as6 ED Course: 01:54 Patient arrived in ED. ja2 02:07 Triage completed. as6 02:12 Arm band placed on. as6 03:43 Isaias Keyes MD is Attending Physician. mh7 03:48 Jorge Lawrence, PARDEEP is Primary Nurse. ll3 03:51 Patient has correct armband on for positive identification. Placed in gown. Bed in low ll3 position. Call light in reach. Side rails up X 1. 04:41 Ankle Right 3 View XRAY In Process Unspecified. EDMS 04:41 Foot Right 3 View XRAY In Process Unspecified. EDMS 05:30 Vik Bynum MD is Referral Physician. mh7 06:05 No provider procedures requiring assistance completed. Patient did not have IV access ll3 during this emergency room visit. Administered Medications: 04:12 Drug: Motrin (ibuprofen) 800 mg Route: PO; ll3 05:16 Follow up: Response: No adverse reaction ll3 Outcome: 05:31 Discharge ordered by . mh7 06:05 Discharged to home ambulatory. ll3 06:05 Condition: stable 06:05 Discharge instructions given to patient, Instructed on discharge instructions, follow up and referral plans. medication usage. 06:05 Patient left the ED. ll3 Signatures: Dispatcher [employer] Isaias Weldon MD MD mh7 Nivia Lopez Ashby RN RN as6 Jorge Lawrence RN RN ll3
[2021-06-20 06:41] VITALS: TEMP 97.1
[2021-06-20 06:42] VITALS: BP 103/63; O2SAT 99
--- NOTE | 2021-06-20 10:38 | RAD REPORT ---
EXAM DESCRIPTION: RAD - Ankle Right 3 View - 06/20/2021 4:41 am CLINICAL HISTORY: Right ankle pain FINDINGS: No fracture or dislocation is seen.
--- NOTE | 2021-06-20 10:39 | RAD REPORT ---
EXAM DESCRIPTION: RAD - Foot Right 3 View - 06/20/2021 4:41 am CLINICAL HISTORY: Right foot pain status post injury FINDINGS: No fracture or dislocation is seen
== END 2021-06-20 06:05 | disposition home or self-care (01) ==
LOC: ER 01:33
DX: S93.401A Sprain of unspecified ligament of right ankle, initial encounter (principal); X50.1XXA Overexertion from prolonged static or awkward postures, initial encounter; Y93.01 Activity, walking, marching and hiking; I10 Essential (primary) hypertension; F41.9 Anxiety disorder, unspecified
CPT/HCPCS: 99283